=== PATIENT | female | born 1995 | race Caucasian/White ===

== ENCOUNTER 2018-01-13 17:48 | Observation (INO) ==
[2018-01-13 18:40] LABS: Amphetamine Screen,Urine Negative ng/mL (Cutoff=1000); Barbiturate Screen,Urine Negative ng/mL (Cutoff=200); Benzodiazepines Screen,Urine Negative ng/mL (Cutoff=200); Cannabinoid Screen,Urine Negative ng/mL (Cutoff = 50); Cocaine Screen,Urine Negative ng/mL (Cutoff= 300); Opiate Screen,Urine Negative ng/mL (Cutoff=300); Phencyclidine Screen,Urine Negative ng/mL (Cutoff=25)
--- NOTE | 2018-01-13 19:37 | OB/GYN Progress Note ---
Date of Encounter: 01/13/18 Time of Encounter: 19:28 - Assessment and Plan (1) 39 weeks gestation of Status: Acute Continue with scheduled IOL on Monday per Dr. Butcher Labor precautions given Discharge home (2) Chlamydia infection affecting in third trimester Status: Acute RAY collected today (3) NST (non-stress test) reactive on surveillance Status: Acute Subjective - Subjective Principal diagnosis: Decreased movement Interval history: Ms. Pacheco is a 22-year-old at 39 weeks 3 days gestation who presents with complaints of decreased movement for the previous 4 hours to arrival. She denies contractions, leakage of fluid, and vaginal bleeding. She states she was treated for chlamydia on December 27 but has not had a test of cure yet. She has been seen by Dr. Butcher throughout this . Antepartum ROS: new complaints, no loss of fluid, no vaginal bleeding, no movement normal, no contractions Objective - Vital Signs Vital Signs: Intake and Output 01/13/18 01/13/18 01/13/18 07:59 15:59 23:59 Other: Weight 94.619 kg Patient Weight 01/13/18 23:59 Weight 94.619 kg - Exam FHR: category 1 FHR comments: Baseline 140 Moderate variability Accelerations present 15x15 No decelerations FHR Category I Auscultation: bilateral: normal Abdomen: Present: normal appearance, soft, gravid Uterus: Present: normal, firm Cervical dilation: 1 Cervix effacement: 70 station: -1
== END 2018-01-13 19:30 | disposition home or self-care (01) ==
LOC: 1NENULAB
PROVIDERS: ADMIT Obstetrics & Gynecology; ATTEND Obstetrics & Gynecology

== ENCOUNTER 2018-01-16 04:00 | Inpatient (IN) ==
[2018-01-16] MEDS ORDERED: Naloxone 0.4 MG/ML INJ IVP PRN ×2 (04:23→18:50)
[2018-01-16] MEDS ORDERED: Ondansetron 4 MG/2 ML VIAL IVP PRN ×2 (04:23→18:50)
[2018-01-16] MEDS ORDERED: miSOPROStol 25 MCG TABLET VG PRN (04:23)
[2018-01-16] MEDS ORDERED: Metoclopramide 10 MG/2 ML VIAL IVP PRN ×2 (04:23→18:50)
[2018-01-16] MEDS ORDERED: *HR* Nalbuphine 10 MG/ML AMPUL IVP PRN (04:23)
[2018-01-16] MEDS ORDERED: Famotidine 20 MG/2 ML VIAL IVP PRN (04:23)
[2018-01-16 05:16] LABS: Basophils % 0.2 %; Eosinophils # 0.1 K/mcL (0.0-0.6); Eosinophils % 0.6 %; Hematocrit 32.7 % (35.3-44.9); Hemoglobin 10.9 g/dL (11.5-15.4); Immature Granulocytes % 0.3 % (0-4); Lymphocytes # 2.9 K/mcL (0.6-4.6); Lymphocytes % 19.9 %; Mean Corpuscular HGB Conc 33.3 g/dL (31.6-35.5); Mean Corpuscular Hemoglobin 29.3 pg (28.0-33.3); Mean Corpuscular Volume 87.9 fL (83.0-100.0); Mean Platelet Volume 10.5 fL (9.4-12.4); Monocytes # 0.7 K/mcL (0.0-1.3); Monocytes % 4.6 %; Neutrophils # 10.7 K/mcL (1.6-8.9); Platelet Count 248 K/mcL (140-400); Red Blood Count 3.72 M/mcL (3.82-4.97); Red Cell Distribution Width 14.2 % (11.5-14.5); Segmented Neutrophils % 74.4 %
[2018-01-16 05:22] LABS: Amphetamine Screen,Urine Negative ng/mL (Cutoff=1000); Barbiturate Screen,Urine Negative ng/mL (Cutoff=200); Benzodiazepines Screen,Urine Negative ng/mL (Cutoff=200); Cannabinoid Screen,Urine Negative ng/mL (Cutoff = 50); Cocaine Screen,Urine Negative ng/mL (Cutoff= 300); Opiate Screen,Urine Negative ng/mL (Cutoff=300); Phencyclidine Screen,Urine Negative ng/mL (Cutoff=25)
--- NOTE | 2018-01-16 07:20 | Anesthesia Evaluation PreOp ---
Date of Encounter: 01/16/18 Time of Encounter: 07:09 - Past History Planned Operation: vaginal del, G1 induction Cardiac History: Denies any Significant Hx Pulmonary History: Asthma (2 flares up this preg, relieved via albuteral, no hospitalizations reported. triggers unknown.) COSTUME SHOP COORDINATOR History: Denies Any Significant HX Other Medical History: Denies Any Significant HX Anesthesia History: No Prior Anesthetic Complications, Past Anesthesia Alcohol Use: none Drug use: none Medications and Allergies Albuterol Sulfate [Proair Hfa] 1 puff IH PRN PRN 01/13/18 [History] 3 Allergy/AdvReac Type Severity Reaction Status Date / Time Cephalosporins Allergy Hives Verified 01/16/18 04:29 doxycycline Allergy Hives Verified 01/16/18 04:29 Sulfa (Sulfonamide Allergy Hives Verified 01/16/18 04:29 Antibiotics) sulfamethoxazole Allergy Hives Verified 01/16/18 04:29 [From Bactrim] trimethoprim [From Bactrim] Allergy Hives Verified 01/16/18 04:29 Anesthesia Results - Labs 01/16/18 04:40 Anesthesia Exam - HEENT Pupil (Motor): Pupils equal Mallampati: II Teeth: Normal Oral Opening: Greater than 3 - COSTUME SHOP COORDINATOR LOC: Oriented COSTUME SHOP COORDINATOR Motor: Normal RUE, Normal LUE, Normal RLE, Normal LLE, Normal Face COSTUME SHOP COORDINATOR Sensory: Normal: RUE, LUE, RLE, LLE, Face - Cardiac Rhythm: Regular Murmur: None - Pulmonary Breath Sounds: bilateral Clear Respiratory Effort: Symmetrical Anesthesia Assess/Plan ASA Score: 2 Modified [place] Scale for Level of Consciousness: Cooperative, oriented, and tranquil Anesthetic Plan: General, Regional Monitoring Plan: Standard Monitors Recovery Plan: PACU
[2018-01-16] MEDS ORDERED: EPHEDrine 50 MG/ML VIAL IVP PRN (07:21)
[2018-01-16] MEDS ORDERED: Epidural Premix (fent/bupiv) 110 ML EP SCH (07:30)
--- NOTE | 2018-01-16 08:26 | OB/GYN History & Physical ---
Date of Encounter: 01/16/18 Time of Encounter: 08:24 Assessment and Plan (1) 39 weeks gestation of Current visit: No Status: Acute Cytotec given with reassessment in 4 hrs, with advanced dilation, will start pitocin, cont monitoring strip History of Present Illness HPI: Ms. Pacheco is a 22 year old female @ 39+6 weeks who presents to the office for IOL. She does not report LOF, VB or ctxs. history uncomplicated, GBS neg, has history of depression and suicidal ideation in 2013. Past Med Surg Social Fam HX - Past Medical History Medical history: asthma Psychiatric history: anxiety, depression - Past Surgical History Additional surgical history: left ear drum graft - Social History Smoking Status: Former smoker Smokeless Tobacco Status: No Alcohol use: none Drug use: none - Family History Mother Adopted: No Living Status: Still Living Hx Family Cardiac Disorders: No Hx Family Respiratory Disorders: No Hx Family Cancer: No Hx Family GI Disorders: No Hx Family Endocrine Disorder: No Hx Family Neuromuscular Disorders: No Hx Family Neurologic Disorders: Yes (Seizures) Hx Family HEENT Disorders: No Hx Family Autoimmune Disorders: No Obstetrical History - Pregnancies : 1 Medications and Allergies Albuterol Sulfate [Proair Hfa] 1 puff IH PRN PRN 01/13/18 [History] 3 Allergy/AdvReac Type Severity Reaction Status Date / Time Cephalosporins Allergy Hives Verified 01/16/18 04:29 doxycycline Allergy Hives Verified 01/16/18 04:29 Sulfa (Sulfonamide Allergy Hives Verified 01/16/18 04:29 Antibiotics) sulfamethoxazole Allergy Hives Verified 01/16/18 04:29 [From Bactrim] trimethoprim [From Bactrim] Allergy Hives Verified 01/16/18 04:29 Exam - Constitutional Constitutional: no acute distress - HEENT HEENT: PERRL - Lungs Respiratory exam: CTAB - Cardiovascular Cardiovascular exam: RRR - Abdomen Abdomen: Present: gravid - Cervix Dilation: 1 Effacement: 80 Results Result Diagrams: 01/16/18 04:40 Abnormal lab results WBC 14.4 K/mcL (4.3-11.1) H 01/16/18 04:40 RBC 3.72 M/mcL (3.82-4.97) L 01/16/18 04:40 Hgb 10.9 g/dL (11.5-15.4) L 01/16/18 04:40 Hct 32.7 % (35.3-44.9) L 01/16/18 04:40 Neutrophils # 10.7 K/mcL (1.6-8.9) H 01/16/18 04:40 All other labs normal. - VTE Reasons for not Prescribing Prophylaxis: Treatment not Indicated - Low risk for VTE
[2018-01-16] MEDS ORDERED: Lidocaine -MPF 2% 5 ML VIAL ONE (09:12)
[2018-01-16] MEDS ORDERED: miSOPROStol 25 MCG TABLET PO PRN (09:55)
--- NOTE | 2018-01-16 09:57 | OB Labor Progress Note ---
Date of Encounter: 01/16/18 Time of Encounter: 09:54 Labor Progress Note - Subjective Subjective: Patient tolerating well. - Vital Signs Vital Signs: VSS - Cervix Cervix: 1-2/80/0 anterior - Heart Tones Heart Tones: 130 baseline - [place]: irregular contractions - Interventions Interventions: Intracervical house balloon with 60cc sterile water placed without difficulty - Plan Plan: Continue routine labor management GBS negative Cytotec Consider pitocin and/or AROM Anticipate vaginal delivery POC per consult with Dr Butcher
[2018-01-16] MEDS: Ringers Solution, Lactated 1,000 ML IVC SCH ×2 (10:17→17:34)
[2018-01-16] MEDS ORDERED: Oxytocin 20 units/ LR 1000 mL 20 UNIT/1,000 ML BAG IVC ONE (14:35)
--- NOTE | 2018-01-16 14:40 | OB Labor Progress Note ---
Date of Encounter: 01/16/18 Time of Encounter: 14:39 Labor Progress Note - Subjective Subjective: patient doing well - Vital Signs Vital Signs: VSS - Heart Tones Heart Tones: CAT1
[2018-01-16] MEDS: Oxytocin 20 units/ LR 1000 mL 20 UNIT/1,000 ML BAG IVC SCH ×2 (14:59→22:17)
--- NOTE | 2018-01-16 16:15 | Anesthesia Procedures ---
Date of Encounter: 01/16/18 Time of Encounter: 15:56 Procedures: Anesthesia - Epidural/Spinal Patient ID/Chart reviewed: Yes Patient examined: Yes OB Eval: Gestational age: term OB Eval: : 1 OB Eval: Contractions: Non-stressed pattern Consent Obtained: Yes Supplemental Oxygen: None/Room Air Site Prep: Aseptic Technique, Sterile prep and drape, 0.5% Chlorhexidine/Alcohol Patient position: upright Local Anesthetic: Lidocaine 1% Amount of Local Anesthetic used: 2 Touhy Needle Gauge: 18 Touhy Needle Depth (cm): 7 Catheter Depth at Skin (cm): 11 Test Dose (1.5% Lido + Epi): Volume given (mls): 3 Test Dose Result: Negative Loading Dose: Other: 10ml from solution Loading Dose Administered: Thru Catheter Infusion Med: 0.125% Bupivacaine w/ 2 mcg/ml Fentanyl Infusion Rate (mls/hr): [address]: Tegaderm, Tape Interspace Used: L3-L4 Loss of Resistance (LAKESHIA): Yes (saline) Blood: No CSF: No Paresthesia: No Procedure: vss though out procedure, FHR stable per staff.
--- NOTE | 2018-01-16 16:41 | OB Labor Progress Note ---
Date of Encounter: 01/16/18 Time of Encounter: 16:39 Labor Progress Note - Subjective Subjective: Patient resting comfortably in bed after epidural placement - Vital Signs Vital Signs: VSS - Cervix Cervix: 5-6/80/0 - Heart Tones Heart Tones: 135 - [place]: Every 1-4 minutes - Interventions Interventions: AROM for small amount of clear fluid - Plan Plan: Continue routine labor management GBS negative Pitocin infusion currently infusing at 2mu/min Anticipate vaginal delivery POC per consult with Dr woodard
[2018-01-16] MEDS ORDERED: Lidocaine/EPI 1:200k 2% PF 20 ML VIAL ONE (17:07)
[2018-01-16] MEDS ORDERED: *HR* Phenylephrine 10 MG/ML VIAL ONE (17:57)
[2018-01-16] MEDS ORDERED: Clindamycin 900 MG/50 ML 900 MG/50 ML IV.SOLN IVPB ONE (18:03)
[2018-01-16] MEDS ORDERED: *HR* Oxytocin 10 UNIT/ML VIAL IM ONE (18:09)
[2018-01-16] MEDS ORDERED: *HR* Morphine Sulfate/PF 10 MG/10 ML AMPUL ONE (18:22)
[2018-01-16] MEDS ORDERED: *HR* HYDROmorphone (PF) 1 MG/ML SYRINGE IVP PRN ×2 (18:29→21:16)
[2018-01-16] MEDS ORDERED: *HR* Promethazine 25 MG/ML VIAL IVP PRN ×2 (18:29→21:20)
[2018-01-16] MEDS ORDERED: Acetaminophen IV 1,000 MG/100 ML INFUS..BTL IVPB ONE (18:29)
[2018-01-16] MEDS ORDERED: Rho Immune Globulin 1,500 UNIT SYRINGE IM ONE (18:50)
[2018-01-16] MEDS ORDERED: Simethicone 80 MG TAB.CHEW PO PRN (18:50)
[2018-01-16] MEDS ORDERED: Sennosides 8.6 MG TABLET PO PRN (18:50)
--- NOTE | 2018-01-16 18:55 | OB/GYN Procedure Note ---
Section - Date of procedure: 01/16/18 Preop diagnosis: other (Nonreassuring well-being) Post-op diagnosis: same Procedure: section, primary low transverse Surgeon: Heath Cervantes Blood Loss: 300 Was there an paperhanger assistant present: No Anesthesia Type: Epidural section complications: none Disposition: L&D Recovery Room Specimens: Placenta - Infant (s) Infant A Infant Delivery Date: 01/16/18 Delivery Time: 18:20 Presentation: vertex Gender: Female Viability: Viable Pounds: 8 Ounces: 1 at 1 minute: 8 at 5 minutes: 9 Shoulder Dystocia: not encountered Placenta: spontaneous Cord: nuchal cord - Narrative Narrative: Patient's 22-year-old female who was undergoing induction and had heart rate decelerations at 7 cm dilation initially preparations are made for section however we did turn off Pitocin and repositioning patient gave oxygen IV fluid bolus and started amnioinfusion and we had initial recovery period. We did again begin having recurrent deep variable decelerations to this upper 60s patient remained 7 cm dilated therefore decision was made to proceed with section. Patient was counseled operative risks and signed appropriate consent. Description procedure: Patient was taken operating room where spinal anesthesia had been dosed. Bladder was drained with Marquez catheter. Scalpel was used to make a Pfannenstiel skin incision which was sharply taken down the rectus fascia. Fascia was incised midline fascial incision was extended bilaterally. Plan was developed between rectus fascia and rectus fascia in the midline and the peritoneum was entered bluntly. Bladder flap was developed and lower uterine segment scalp was used to make a low transverse uterine incision this was extended bluntly bilaterally membranes were ruptured and was delivered from vertex presentation. There was a nuchal cord 1 which was relatively tight. Cord was clamped and cut and was handed nurse personnel were weight is some be 8 lbs. 1 oz. Apgars 8 at 1 minute and 9 at 5 minutes. Placenta was delivered without difficulty. Uterus cavity was massaged free of all residual tissue. Uterus was closed 0 Vicryl running lock stitch hemostasis was ensured. Fascia was closed 0 Vicryl running manner. All sponge and instruments counts are correct. Skin edges were approximated with 4-0 Vicryl in a javy dressing was applied. Patient was taken recovery in good condition.
[2018-01-16] MEDS ORDERED: Ringers Solution, Lactated 1,000 ML IVC SCH (19:00)
[2018-01-16] MEDS ORDERED: Oxytocin 20 units/ LR 1000 mL 20 UNIT/1,000 ML BAG IVC SCH (19:00)
--- NOTE | 2018-01-16 21:13 | Anesthesia Evaluation Post Op ---
Date of Encounter: 01/16/18 Time of Encounter: 21:13 - Vital Signs Vital Signs: vss - Airway Airway: Non-obstructed - Mental Status Mental Status: Alert & Oriented, Answers Appropriately - Pain Pain Scale used: Khadar (Faces) - Nausea Vomiting Nausea Vomiting: Not Present - Hydration Hydration: Ice chips - Discharge PostOp Status: Transfer Patient to floor
[2018-01-17 05:03] LABS: Basophils % 0.2 %; Eosinophils % 0.2 %; Hematocrit 31.9 % (35.3-44.9); Hemoglobin 10.6 g/dL (11.5-15.4); Immature Granulocytes % 0.4 % (0-4); Lymphocytes # 2.2 K/mcL (0.6-4.6); Lymphocytes % 14.2 %; Mean Corpuscular HGB Conc 33.2 g/dL (31.6-35.5); Mean Corpuscular Volume 90.4 fL (83.0-100.0); Mean Platelet Volume 10.7 fL (9.4-12.4); Monocytes # 0.7 K/mcL (0.0-1.3); Monocytes % 4.7 %; Neutrophils # 12.6 K/mcL (1.6-8.9); Platelet Count 182 K/mcL (140-400); Red Blood Count 3.53 M/mcL (3.82-4.97); Red Cell Distribution Width 13.9 % (11.5-14.5); Segmented Neutrophils % 80.3 %
--- NOTE | 2018-01-17 09:17 | OB/GYN Progress Note ---
Date of Encounter: 01/17/18 Time of Encounter: 09:15 - Assessment and Plan (1) S/P section Current Visit: Yes Status: Acute Stable POD #1 Continue current management Anticipate discharge tomorrow. Subjective - Subjective Interval history: Patient up in room during exam, pain well managed on po pain medication, tolerates PO diet, has not voided since house removal, bleeding minimal, bottle feeding. Patient reports: appetite normal, pain well controlled, ambulating normally [place]: doing well Objective - Vital Signs Latest vital signs: Vital Signs Temp Pulse Resp BP Pulse Ox 01/17/18 08:00 99.4 F 98 16 115/75 98 01/17/18 03:50 98.4 F 88 14 121/71 95 01/17/18 00:15 98.0 F 82 14 126/72 97 01/16/18 23:15 98.5 F 90 14 106/66 97 01/16/18 22:15 98.6 F 88 14 122/75 96 01/16/18 21:15 98.1 F 94 14 125/80 97 Intake and Output 01/16/18 01/17/18 01/17/18 23:59 07:59 15:59 Intake Total 1999 150 / 150 Balance 1999 150 / 150 Intake: IV Fluids 1999 Pitocin 20 unit In 1,000 ml @ 1000 / 1000 Per Protocol IVC .Q0M KENZIE Rx#: [id number] Lactated Ringers 1,000 ML @ 125 1000 / 1000 mls/hr IVC .Q8H KENZIE Rx#: [id number] Oral 150 / 150 Other: Weight 96 kg 96 kg Patient Weight 01/17/18 23:59 Weight 96 kg - Exam Lungs: bilateral: normal Chest: Normal S1, Normal S2 Extremities: Present: normal Abdomen: Present: soft Incision: Present: dressed (LIO) Uterus: Present: firm (u-1) - Labs Labs: Laboratory Results - last 24 hr 01/17/18 04:40 WBC 15.6 H RBC 3.53 L Hgb 10.6 L Hct 31.9 L MCV 90.4 MCH 30.0 MCHC 33.2 RDW 13.9 Plt Count 182 MPV 10.7 Immature Gran % 0.4 Seg Neutrophils % 80.3 Lymphocytes % 14.2 Monocytes % 4.7 Eosinophils % 0.2 Basophils % 0.2 Neutrophils # 12.6 H Lymphocytes # 2.2 Monocytes # 0.7 Eosinophils # 0.0 Basophils # 0.0
[2018-01-17] MEDS: Ibuprofen 600 MG TABLET PO PRN ×2 (09:35→20:10)
[2018-01-17] MEDS: Prenatal Vit/FA 1 EACH TABLET PO SCH (09:35)
[2018-01-18] MEDS: *HR* OxyCODONE/APAP 5/325 TABLET PO PRN ×2 (00:58→08:47)
--- NOTE | 2018-01-18 06:46 | Discharge Summary ---
Date of Encounter: 01/18/18 Time of Encounter: 06:37 - Discharge Diagnosis (1) Mother currently breast-feeding Priority: Secondary Status: Acute (2) S/P section Priority: Primary Status: Acute Comments: Pt meeting all post-op milestones. She is requesting discharge home today. - Discharge Medications Prescriptions: OxyCODONE/APAP 5/325 [Percocet 5/325 MG] 1 each PO Q4HR PRN 5 Days #30 tablet PRN Reason: Moderate pain 4-6 Ibuprofen [Motrin] 600 mg PO Q6HR PRN #60 tablet PRN Reason: Cramping Docusate [Colace] 100 mg PO BID #60 capsule Home Medications: Albuterol Sulfate [Proair Hfa] 1 puff IH PRN PRN 01/13/18 [History] Breast Pump [BREAST PUMP] 1 each .ROUTE AD #1 each 01/18/18 [Rx] Docusate [Colace] 100 mg PO BID #60 capsule 01/18/18 [Rx] Ibuprofen [Motrin] 600 mg PO Q6HR PRN #60 tablet 01/18/18 [Rx] OxyCODONE/APAP 5/325 [Percocet 5/325 MG] 1 each PO Q4HR PRN 5 Days #30 tablet [Rx] Vit/FA 1 each PO DAILY tablet 01/18/18 [Rx] Simethicone [Gas-X] 80 mg PO TID PRN tab.chew 01/18/18 [Rx] Allergies/Adverse Reactions: 3 Allergy/AdvReac Type Severity Reaction Status Date / Time Cephalosporins Allergy Hives Verified 01/16/18 04:29 doxycycline Allergy Hives Verified 01/16/18 04:29 Sulfa (Sulfonamide Allergy Hives Verified 01/16/18 04:29 Antibiotics) sulfamethoxazole Allergy Hives Verified 01/16/18 04:29 [From Bactrim] trimethoprim [From Bactrim] Allergy Hives Verified 01/16/18 04:29 Data Procedures and tests throughout hospitalization: Laboratory Tests 01/16/18 01/16/18 01/17/18 04:40 04:40 04:40 WBC 14.4 H 15.6 H RBC 3.72 L 3.53 L Hgb 10.9 L 10.6 L Hct 32.7 L 31.9 L MCV 87.9 90.4 MCH 29.3 30.0 MCHC 33.3 33.2 RDW 14.2 13.9 Plt Count 248 182 MPV 10.5 10.7 Immature Gran % 0.3 0.4 Seg Neutrophils % 74.4 80.3 Lymphocytes % 19.9 14.2 Monocytes % 4.6 4.7 Eosinophils % 0.6 0.2 Basophils % 0.2 0.2 Neutrophils # 10.7 H 12.6 H Lymphocytes # 2.9 2.2 Monocytes # 0.7 0.7 Eosinophils # 0.1 0.0 Basophils # 0.0 0.0 Urine Opiates Screen Negative Ur Barbiturates Screen Negative Ur Phencyclidine Scrn Negative Ur Amphetamines Screen Negative U Benzodiazepines Scrn Negative Urine Cocaine Screen Negative U Marijuana (THC) Screen Negative Ur Drug Screen Interp See Below Date of admission: 01/16/18 04:21 Primary care physician: PCP [facility] Consults: 01/16/18 12:27 Consult to Multimedia Specialist (W&C) [CONS] Routine Reason For Exam: Reason for SW Consult: hx of suicidal attempt 01/16/18 14:13 Consult to Multimedia Specialist (W&C) [CONS] Routine Reason For Exam: Reason for SW Consult: History of hospitalization for suicidal ideation in 201301/16/18 18:50 Consult to Multimedia Specialist (W&C) [CONS] Routine Reason For Exam: Reason for SW Consult: 22 yo Discharging clinician: Saumya Jacques Anticipated date of discharge: 01/18/18 - Patient Status Disposition: Home, Self-Care Condition: Good Functional capacity at discharge: independent ambulation Overall status at discharge: patient is progressing back to baseline - Discharge Instructions Follow Up With: NONE,PCP [Primary Care Provider] - Heath Farah MD [Partnered Physician] - - Diet and Activity Activity: increase activity as tolerated Diet: regular diet Hospital Course Delivery: section Episiotomy: none Laceration: none Other procedures: none complications: none Discharge diagnosis: IUP at term delivered baby: female Hospital course: - Date of procedure: 01/16/18 Preop diagnosis: other (Nonreassuring well-being) Post-op diagnosis: same Procedure: section, primary low transverse Surgeon: Heath Farah Quantitated Blood Loss: 300 Was there an legal administrative assistant present: No Anesthesia Type: Epidural section complications: none Disposition: L&D Recovery Room Specimens: Placenta - Infant (s) Infant A Infant Delivery Date: 01/16/18 Infant Delivery Time: 18:20 Presentation: vertex Gender: Female Viability: Viable Pounds: 8 Ounces: 1 at 1 minute: 8 at 5 minutes: 9 Shoulder Dystocia: not encountered Placenta: spontaneous Cord: nuchal cord Time Attestation: Total time spent providing and/or coordinating discharge services: Time Spent: Less than 30 minutes - VTE Reasons for not Prescribing Prophylaxis: Treatment not Indicated - Low risk for VTE Documentation of Mechanical Device: Intermittent pneumatic compression device Exam - Constitutional Vitals: Temp Pulse Resp BP Pulse Ox 98.9 F 103 16 128/83 97 01/17/18 20:17 01/17/18 20:17 01/17/18 20:17 01/17/18 20:17 01/17/18 20:17 General appearance IM: A&O X 3 - Respiratory Respiratory exam: Present: CTAB - Cardiovascular Cardiovascular exam IM: Present: RRR, +S1, +S2 - GI/Abdominal GI/Abdominal exam IM: soft, no peritoneal signs Incision: dressed (LIO with small amount old drainage. No new drainage. ) - Uterine Tone: Firm Uterus Position: 1 Finger Below Umbilicus - Extremities Exam Extremities exam IM: Present: pedal edema (mild bilaterally) - Neurological Exam Neurological exam: normal gait, oriented X3 - Psychiatric Additional comments: reports good mood
[2018-01-18 08:02] VITALS: BP 109/72
[2018-01-18] MEDS: Prenatal Vit/FA 1 EACH TABLET PO SCH (08:45)
[2018-01-18] MEDS: Ibuprofen 600 MG TABLET PO PRN (08:45)
== END 2018-01-18 09:45 | disposition home or self-care (01) | DRG 540 ==
LOC: 1NENULAB 04:21 → 1NENUOBS 21:24
PROVIDERS: ADMIT Student in an Organized Health Care Education/Training Program; ATTEND Student in an Organized Health Care Education/Training Program

== ENCOUNTER → 2020-05-04 15:27 | Observation (INO) ==
[2020-05-04 14:25] LABS: Bacteria,Urine Few per hpf (None-Few); Bilirubin,Urine Negative (Negative); Blood,Urine Negative (Negative); Clarity,Urine Turbid (Clear); Color,Urine Colorless (Yellow); Glucose,Urine (UA) Normal (Normal); Ketones,Urine 40 mg/dL (Negative); Leukocyte Esterase,Urine Trace (Negative); Nitrite,Urine Negative (Negative); Protein,Urine Negative (Neg-Trace); RBC,Urine 0-3 per hpf (0-3); Specific Gravity,Urine 1.007 (1.010-1.025); Squamous Epithelial Cell,Urine Moderate per hpf (None-Few); Urobilinogen,Urine Normal (Normal)
[2020-05-04 14:37] VITALS: BP 108/74
[2020-05-04 17:05] LABS: Candida DNA DETECTED (Not Detect); Gardnerella DNA Not Detected (Not Detect); Trichomonas DNA Not Detected (Not Detect)
== END | disposition home health service (06) ==
LOC: 1NENULAB
PROVIDERS: ADMIT Obstetrics & Gynecology; ATTEND Obstetrics & Gynecology

== ENCOUNTER 2020-07-10 01:44 | Inpatient (IN) ==
[2020-07-10] MEDS ORDERED: Famotidine 20 MG/2 ML VIAL IVP PRN (02:14)
[2020-07-10] MEDS ORDERED: Naloxone 0.4 MG/ML INJ IVP PRN ×2 (02:14→12:30)
[2020-07-10] MEDS ORDERED: Metoclopramide 10 MG/2 ML VIAL IVP PRN ×2 (02:14→12:30)
[2020-07-10 02:50] LABS: Amphetamine Screen,Urine Negative ng/mL (Cutoff=1000); Barbiturate Screen,Urine Negative ng/mL (Cutoff=200); Benzodiazepines Screen,Urine Negative ng/mL (Cutoff=200); Cannabinoid Screen,Urine Negative ng/mL (Cutoff = 50); Cocaine Screen,Urine Negative ng/mL (Cutoff= 300); Opiate Screen,Urine Negative ng/mL (Cutoff=300); Phencyclidine Screen,Urine Negative ng/mL (Cutoff=25)
[2020-07-10 02:56] LABS: Basophils % 0.3 %; Eosinophils # 0.2 K/mcL (0.0-0.6); Eosinophils % 1.3 %; Hematocrit 33.4 % (35.3-44.9); Hemoglobin 10.5 g/dL (11.5-15.4); Immature Granulocytes % 0.5 % (0-4); Lymphocytes # 2.9 K/mcL (0.6-4.6); Lymphocytes % 22.4 %; Mean Corpuscular HGB Conc 31.4 g/dL (31.6-35.5); Mean Corpuscular Volume 89.1 fL (83.0-100.0); Mean Platelet Volume 10.5 fL (9.4-12.4); Monocytes # 0.7 K/mcL (0.0-1.3); Monocytes % 5.4 %; Platelet Count 261 K/mcL (140-400); Red Blood Count 3.75 M/mcL (3.82-4.97); Red Cell Distribution Width 14.2 % (11.5-14.5); Segmented Neutrophils % 70.1 %; White Blood Count 12.8 K/mcL (4.3-11.1)
[2020-07-10] MEDS ORDERED: Ringers Solution, Lactated 1,000 ML ONE (05:58)
[2020-07-10] MEDS ORDERED: Ringers Solution, Lactated 1,000 ML IVC ONE (06:01)
[2020-07-10] MEDS ORDERED: *HR* FentaNYL (PF) 100 MCG/2 ML VIAL ONE (07:39)
[2020-07-10] MEDS ORDERED: *HR* Morphine Sulfate/PF 10 MG/10 ML AMPUL ONE (07:39)
[2020-07-10] MEDS ORDERED: *HR* Phenylephrine 10 MG/ML VIAL ONE (07:44)
[2020-07-10] MEDS ORDERED: Ondansetron 4 MG/2 ML VIAL ONE ×2 (07:46→09:54)
[2020-07-10] MEDS ORDERED: Ondansetron 4 MG/2 ML VIAL IVP PRN ×2 (07:58→12:30)
[2020-07-10] MEDS ORDERED: Clindamycin 900 MG/50 ML 900 MG/50 ML IV.SOLN IVPB ONE (07:58)
[2020-07-10] MEDS ORDERED: Acetaminophen IV 1,000 MG/100 ML BAG IVPB ONE (08:46)
[2020-07-10] MEDS ORDERED: Oxytocin 20 units/ LR 1000 mL 20 UNIT/1,000 ML BAG IVC ONE ×2 (08:51→11:09)
[2020-07-10] MEDS ORDERED: Ketorolac 30 MG/ML VIAL ONE (08:57)
[2020-07-10] MEDS: *HR* HYDROmorphone PF 0.5 MG/0.5 ML SYRINGE IVP PRN ×2 (11:10→11:52)
[2020-07-10] MEDS ORDERED: Simethicone 80 MG TAB.CHEW PO PRN (12:30)
[2020-07-10] MEDS ORDERED: Ringers Solution, Lactated 1,000 ML IVC SCH (12:30)
[2020-07-10] MEDS ORDERED: Sennosides 8.6 MG TABLET PO PRN (12:30)
[2020-07-10] MEDS ORDERED: Rho Immune Globulin 1,500 UNIT SYRINGE IM ONE (12:30)
[2020-07-10] MEDS: Oxytocin 20 units/ LR 1000 mL 20 UNIT/1,000 ML BAG IVC SCH (15:54)
[2020-07-10 17:27] LABS: Basophils % 0.2 %; Immature Granulocytes % 0.6 % (0-4)
[2020-07-10 17:28] LABS: Basophils # 0.1 K/mcL (0.0-0.2); Hematocrit 25.6 % (35.3-44.9); Hemoglobin 8.3 g/dL (11.5-15.4); Lymphocytes # 1.6 K/mcL (0.6-4.6); Lymphocytes % 6.1 %; Mean Corpuscular HGB Conc 32.4 g/dL (31.6-35.5); Mean Corpuscular Hemoglobin 29.3 pg (28.0-33.3); Mean Corpuscular Volume 90.5 fL (83.0-100.0); Mean Platelet Volume 10.4 fL (9.4-12.4); Monocytes # 0.9 K/mcL (0.0-1.3); Monocytes % 3.3 %; Neutrophils # 23.1 K/mcL (1.6-8.9); Platelet Count 317 K/mcL (140-400); Red Blood Count 2.83 M/mcL (3.82-4.97); Red Cell Distribution Width 14.4 % (11.5-14.5); Segmented Neutrophils % 89.8 %; White Blood Count 25.7 K/mcL (4.3-11.1)
[2020-07-10 17:31] LABS: Platelet Estimate Normal (Normal)
[2020-07-10] MEDS: Ibuprofen 600 MG TABLET PO PRN (20:25)
[2020-07-11] MEDS: *HR* OxyCODONE/APAP 5/325 TABLET PO PRN ×3 (00:05→18:35)
[2020-07-11] MEDS: Oxytocin 20 units/ LR 1000 mL 20 UNIT/1,000 ML BAG IVC SCH (00:07)
[2020-07-11] MEDS: Ibuprofen 600 MG TABLET PO PRN (04:18)
[2020-07-11 04:58] LABS: Basophils % 0.2 %; Eosinophils # 0.1 K/mcL (0.0-0.6); Eosinophils % 0.4 %; Immature Granulocytes % 0.4 % (0-4); Lymphocytes # 2.6 K/mcL (0.6-4.6); Lymphocytes % 17.9 %; Mean Corpuscular HGB Conc 33.2 g/dL (31.6-35.5); Mean Corpuscular Hemoglobin 29.6 pg (28.0-33.3); Mean Corpuscular Volume 89.2 fL (83.0-100.0); Mean Platelet Volume 10.7 fL (9.4-12.4); Monocytes # 0.9 K/mcL (0.0-1.3); Monocytes % 5.9 %; Platelet Count 234 K/mcL (140-400); Red Blood Count 2.13 M/mcL (3.82-4.97); Red Cell Distribution Width 14.5 % (11.5-14.5); Segmented Neutrophils % 75.2 %; White Blood Count 14.6 K/mcL (4.3-11.1)
[2020-07-11 05:12] LABS: Hemoglobin 6.3 g/dL (11.5-15.4)
[2020-07-11 07:14] LABS: Basophils % 0.2 %; Immature Granulocytes % 0.5 % (0-4); Red Cell Distribution Width 14.5 % (11.5-14.5)
[2020-07-11 07:15] LABS: Eosinophils # 0.1 K/mcL (0.0-0.6); Eosinophils % 0.7 %; Hematocrit 18.4 % (35.3-44.9); Lymphocytes # 2.3 K/mcL (0.6-4.6); Mean Corpuscular HGB Conc 32.1 g/dL (31.6-35.5); Mean Corpuscular Hemoglobin 28.8 pg (28.0-33.3); Mean Corpuscular Volume 89.8 fL (83.0-100.0); Mean Platelet Volume 10.3 fL (9.4-12.4); Monocytes # 0.8 K/mcL (0.0-1.3); Monocytes % 5.8 %; Neutrophils # 9.7 K/mcL (1.6-8.9); Platelet Count 203 K/mcL (140-400); Red Blood Count 2.05 M/mcL (3.82-4.97); Segmented Neutrophils % 74.8 %
[2020-07-11 07:40] LABS: Hemoglobin 5.9 g/dL (11.5-15.4)
[2020-07-11 07:45] LABS: Anisocytosis 1+ (Not Present); Hypochromasia Present (Not Present); Platelet Estimate Normal (Normal)
[2020-07-11] MEDS ORDERED: Ringers Solution, Lactated 1,000 ML IVC ONE ×2 (07:59)
[2020-07-11] MEDS ORDERED: Isovue-370 500 ML BOTTLE IVP ONE (08:00)
[2020-07-11] MEDS ORDERED: Ringers Solution, Lactated 1,000 ML IVC SCH ×5 (08:00→19:12)
[2020-07-11] MEDS ORDERED: *HR* Succinylcholine 200 MG/10 ML VIAL IVP ONE (08:29)
[2020-07-11] MEDS ORDERED: Lidocaine -MPF 2% 2 ML VIAL ONE (08:29)
[2020-07-11] MEDS ORDERED: *HR* Rocuronium Bromide 50 MG/5 ML VIAL ONE (08:29)
[2020-07-11] MEDS ORDERED: Lidocaine HCL 4 ML Topical Solution (Laryng-O-Jet Kit Sterile Pak) TP ONE (08:29)
[2020-07-11] MEDS ORDERED: Ondansetron 4 MG/2 ML VIAL ONE (08:29)
[2020-07-11] MEDS ORDERED: *HR* Propofol 200 MG/20 ML VIAL IVP ONE (08:30)
[2020-07-11] MEDS ORDERED: *HR* FentaNYL (PF) 100 MCG/2 ML VIAL ONE ×2 (08:30→11:46)
[2020-07-11] MEDS ORDERED: *HR* Midazolam HCl 2 MG/2 ML VIAL ONE (08:30)
[2020-07-11] MEDS ORDERED: 0.9 % Sodium Chloride 500 ML ONE (08:54)
[2020-07-11] MEDS ORDERED: WATER FOR INJ IVP STA (09:58)
[2020-07-11] MEDS ORDERED: AZTREONAM IVP STA (09:58)
[2020-07-11] MEDS ORDERED: Clindamycin 900 MG/50 ML 900 MG/50 ML IV.SOLN IVPB ONE ×2 (10:07→10:12)
[2020-07-11 10:53] LABS: Adenovirus Not Detected (Not Detect); Bordetella Pertussis Not Detected (Not Detect); Chlamydophila pneumoniae Not Detected (Not Detect); Coronavirus 229E Not Detected (Not Detect); Coronavirus HKU1 Not Detected (Not Detect); Coronavirus NL63 Not Detected (Not Detect); Coronavirus OC43 Not Detected (Not Detect); Human Metapneumovirus Not Detected (Not Detect); Human Rhinovirus/Enterovirus Not Detected (Not Detect); Influenza A Subtype 2009 H1 Not Detected (Not Detect); Influenza B Not Detected (Not Detect); Mycoplasma pneumoniae Not Detected (Not Detect); Parainfluenza Virus 1 Not Detected (Not Detect); Parainfluenza Virus 2 Not Detected (Not Detect); Parainfluenza Virus 3 Not Detected (Not Detect); Parainfluenza Virus 4 Not Detected (Not Detect); Respiratory Syncytial Virus Not Detected (Not Detect); SARS-CoV-2 Not Detected (Not Detect)
[2020-07-11] MEDS ORDERED: *HR* HYDROmorphone 20 MG/20 ML PCA IVC PRN (12:23)
[2020-07-11] MEDS ORDERED: *HR* FentaNYL (PF) 100 MCG/2 ML VIAL IVP PRN (12:33)
[2020-07-11] MEDS ORDERED: *HR* Meperidine 25 MG/ML SYRINGE IVP PRN (12:33)
[2020-07-11] MEDS: *HR* HYDROmorphone PF 0.5 MG/0.5 ML SYRINGE IVP PRN ×3 (12:40→12:50)
[2020-07-11 14:37] LABS: Hematocrit 29.4 % (35.3-44.9)
[2020-07-11 14:39] LABS: Hemoglobin 9.5 g/dL (11.5-15.4)
[2020-07-11] MEDS: Prenatal Vit/FA 1 EACH TABLET PO SCH (15:52)
[2020-07-11] MEDS: Ibuprofen 600 MG TABLET PO SCH (20:19)
[2020-07-11 22:59] LABS: Basophils % 0.1 %; Eosinophils % 0.2 %; Hemoglobin 9.5 g/dL (11.5-15.4); Immature Granulocytes % 0.4 % (0-4); Lymphocytes # 1.2 K/mcL (0.6-4.6); Lymphocytes % 8.7 %; Mean Corpuscular HGB Conc 32.8 g/dL (31.6-35.5); Mean Corpuscular Hemoglobin 29.1 pg (28.0-33.3); Mean Platelet Volume 10.6 fL (9.4-12.4); Monocytes # 0.7 K/mcL (0.0-1.3); Neutrophils # 12.1 K/mcL (1.6-8.9); Platelet Count 191 K/mcL (140-400); Red Blood Count 3.26 M/mcL (3.82-4.97); Red Cell Distribution Width 14.5 % (11.5-14.5); Segmented Neutrophils % 85.6 %; White Blood Count 14.1 K/mcL (4.3-11.1)
[2020-07-11] MEDS: Acetaminophen 325 MG TABLET PO SCH (23:15)
[2020-07-12] MEDS: *HR* OxyCODONE/APAP 5/325 TABLET PO PRN ×3 (01:34→23:21)
[2020-07-12] MEDS: Ibuprofen 600 MG TABLET PO SCH ×4 (02:19→20:42)
[2020-07-12] MEDS: Acetaminophen 325 MG TABLET PO SCH ×2 (05:08→14:34)
[2020-07-12] MEDS: Prenatal Vit/FA 1 EACH TABLET PO SCH (08:05)
[2020-07-12 08:35] LABS: Basophils % 0.2 %; Eosinophils # 0.1 K/mcL (0.0-0.6); Eosinophils % 0.5 %; Hematocrit 27.1 % (35.3-44.9); Hemoglobin 8.7 g/dL (11.5-15.4); Immature Granulocytes % 0.5 % (0-4); Lymphocytes # 1.5 K/mcL (0.6-4.6); Lymphocytes % 11.2 %; Mean Corpuscular HGB Conc 32.1 g/dL (31.6-35.5); Mean Corpuscular Hemoglobin 28.4 pg (28.0-33.3); Mean Corpuscular Volume 88.6 fL (83.0-100.0); Mean Platelet Volume 10.2 fL (9.4-12.4); Monocytes # 0.9 K/mcL (0.0-1.3); Monocytes % 6.5 %; Neutrophils # 10.5 K/mcL (1.6-8.9); Platelet Count 190 K/mcL (140-400); Red Blood Count 3.06 M/mcL (3.82-4.97); Red Cell Distribution Width 14.6 % (11.5-14.5); Segmented Neutrophils % 81.1 %
[2020-07-13 08:47] VITALS: BP 123/91
[2020-07-13] MEDS: *HR* OxyCODONE/APAP 5/325 TABLET PO PRN (08:48)
[2020-07-13 09:37] LABS: Basophils % 0.2 %; Eosinophils # 0.2 K/mcL (0.0-0.6); Eosinophils % 1.6 %; Hematocrit 26.8 % (35.3-44.9); Hemoglobin 8.6 g/dL (11.5-15.4); Immature Granulocytes % 0.4 % (0-4); Lymphocytes # 2.3 K/mcL (0.6-4.6); Lymphocytes % 18.4 %; Mean Corpuscular HGB Conc 32.1 g/dL (31.6-35.5); Mean Corpuscular Hemoglobin 28.6 pg (28.0-33.3); Monocytes # 0.7 K/mcL (0.0-1.3); Monocytes % 5.3 %; Neutrophils # 9.2 K/mcL (1.6-8.9); Platelet Count 228 K/mcL (140-400); Red Blood Count 3.01 M/mcL (3.82-4.97); Red Cell Distribution Width 14.7 % (11.5-14.5); Segmented Neutrophils % 74.1 %; White Blood Count 12.5 K/mcL (4.3-11.1)
== END 2020-07-13 11:25 | disposition home or self-care (01) | DRG 540 ==
LOC: SAMDAY 01:44 → 1NENULAB 01:54 → EDSTATUS 07:45 → 1NENUOBS 12:09
PROVIDERS: ADMIT Obstetrics & Gynecology; ATTEND Obstetrics & Gynecology